=== PATIENT | male | born 1985 | race Caucasian/White ===

== ENCOUNTER 2022-05-02 09:36 | Emergency (ER) | payer MEDICAID, SELFPAY ==
[2022-05-02 09:39] VITALS: BP 105/55; PULSE 70; RESP 18; TEMP 36.1; O2SAT 99; BMI 35.4
--- NOTE | 2022-05-02 10:49 | ED.GENADULT ---
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 Blood is on 04/30. Patient states that nothing has changed since he was seen in the General surgery appointment and denies any fever, chills, nausea, vomiting, inability to pass stool or flatus and denies any urinary symptoms. Patient states that he was prescribed Naprosyn but ?that has not helped?. Related Data Allergies Allergy/AdvReac Type Severity Reaction Status Date / Time Penicillins [PENICILLINS] Allergy Unknown HIVES/SWELL Unverified 12/22/19 19:32 ING Review of Systems Review of Systems: Pertinent positives and negatives as stated in HPI. [facility] Past Medical History Source: nursing notes reviewed Social History Social History Alcohol intake: unknown Smoked in Last 30 Days: No Use of substances other than those prescribed or required for medical reasons: Unknown Advance Directives: No Advance Directives Information Provided: Yes Physical Exam ED Vital Signs: Vital Signs - 24 hr 05/02/22 09:39 Temperature 97.0 F Pulse Rate 70 Respiratory Rate 18 Blood Pressure 105/55 L Pulse Oximetry 99 Oxygen Delivery Method Room Air BMI result Body Mass Index 35.4 VITAL SIGNS: Reviewed. GENERAL: Well developed, well nourished, in no acute distress. HEAD: Normocephalic/atraumatic EYES: PERRLA, EOMI LUNGS: Normal breath sounds. No adventitious sounds or accessory muscle use. SpO2<99> CARDIOVASCULAR: Regular rate and rhythm without noted murmurs ABDOMEN: Soft, mild tenderness at the left periumbilical otherwise wounds appear to be healing well without overt erythema/induration, no rebound, non-distended with bowel sounds. MUSCULOSKELETAL: No tenderness, deformities, or effusions noted on gross inspection. EXTREMITIES: No cyanosis, clubbing or edema. SKIN: Inspection of the skin reveals no rashes NEUROLOGIC: Alert and oriented x 4. Strength and sensation to light touch were grossly intact x 4. Medical Decision Making Medical Decision Making MDM Narrative: 36-year-old male status post umbilical hernia repair without obstructive symptoms and afebrile and recently seen by surgery. I discussed the case with General surgery, Dr. Miller who agrees with no imaging, he saw the patient at bedside as well and patient will be discharged home in stable condition with additional recommendations for warm compresses for additional symptom relief. He was also recommend to follow-up in the office. Differential Diagnosis Differential Diagnoses: The differential diagnosis associated with the presentation includes Please see the discussion above Consult Healthcare Provider Management of the patient was discussed with: Proofsheet Corrector [id number]: I discussed the case with Dr. Miller. He agrees with no imaging. External Record Review External record reviewed: Office record, Outpatient record and Prior outpatient labs Discharge Plan Discharge Clinical Impression: Post-op pain Patient Disposition: Home, Self-Care Instructions: Pain Management (ED) Additional Instructions: 1. Tylenol 1000 mg, por v?a oral, cada 6 horas seg?n sea necesario para controlar el dolor. No exceda los 4000 mg dentro de las 24 horas. Le recomiendo que tome desmond medicamento junto con el Naprosyn que le whitt recetado carrion cirujano. 2. Tambi?n le recomiendo que use compresas tibias para un alivio adicional de los s?ntomas y, por supuesto, tenga mucho cuidado con la cantidad de peso o la actividad f?jeanette que realiza. 3. Le animo a que cris un seguimiento con el Dr. Choudhury?radha llamando a la oficina para programar al sudhir para al reevaluaci?n. Regrese a la akilah de emergencias si los s?ntomas empeoran. 1. Tylenol 1000 mg, orally, every 6 hours as needed for pain control. Do not exceed 4000 mg within 24 hours. I recommend that you take this medication in conjunction with the Naprosyn that has been prescribed by your surgeon. 2. I also recommend that you can use warm compresses for additional symptom relief and of course be very cautious with the amount of weight or physical activity that you are engaging in. 3. I encourage you to follow-up with Dr. Blood by calling the office in setting up an appointment for re-evaluation. Return to the ER for any worsening symptoms. Referrals: Osbaldo Blood MD [Physician] - (Postop pain) Print Language: Frisian
[2022-05-02] MEDS: Acetaminophen 325 MG TABLET 975 MG PO (11:18)
--- NOTE | 2022-05-02 14:34 | PM.CNGS ---
History of Present Illness Consult details Consult date: 05/02/22 Reason for consult: abdominal pain Narrative: 36-year-old male patient presenting to the emergency department with complaints of abdominal pain. He has a prior history of a laparoscopic hernia repair of the anterior abdominal wall apparently performed by Dr. Blood although no record noted in this patient's chart. Patient was provided with a prescription for Naprosyn however reports that this is not helping. Surgical consultation was requested for abdominal evaluation. Review of Systems Review of Systems: Yes all other systems are reviewed and are negative PMFSH Social History Social History Alcohol intake: unknown Smoked in Last 30 Days: No Use of substances other than those prescribed or required for medical reasons: Unknown Advance Directives: No Advance Directives Information Provided: Yes Meds Allergies Allergy/AdvReac Type Severity Reaction Status Date / Time Penicillins [PENICILLINS] Allergy Unknown HIVES/SWELL Unverified 12/22/19 19:32 ING Physical Exam Vital Signs: Vital Signs: Last Vital Signs Temp 97.0 F 05/02/22 09:39 Pulse 70 05/02/22 09:39 Resp 18 05/02/22 09:39 BP 105/55 L 05/02/22 09:39 Pulse Ox 99 05/02/22 09:39 O2 Del Method 05/02/22 09:39 BMI result Body Mass Index 35.4 Const: General: healthy appearing and comfortable Nutritional Appearance: well nourished Orientation/consciousness: patient oriented x3 Limitations: no limitations Resp: Effort & Inspection: normal respiratory effort and not tachypneic GI: Other: Laparoscopic incisions are clean, dry, and intact without redness or discharge. No palpable hernias identified. No erythema or ecchymosis appreciated. Neuro: General: patient oriented x3 Results Labs Labs: All other labs normal. Assessment and Plan (1) Post-op pain: Status: Acute Plan 36-year-old male patient with a hernia repair performed laparoscopically possibly an outside institution as no record is present in our chart. Examination reveals his abdomen is soft with well-healed laparoscopic incisions. There is no evidence of wound infection, hematoma or hernia recurrence. Patient should follow-up with his primary surgeon. Time Spent With Patient Time: Total time managing care of this patient today ____ minutes. Procedures Date of Service Date of Service: 05/02/22
== END 2022-05-02 11:22 | disposition home or self-care (01) ==
PROVIDERS: Emergency Provider Student in an Organized Health Care Education/Training Program
DX: G89.18 Other acute postprocedural pain (principal)
CPT/HCPCS: 99283; 99284

== ENCOUNTER 2023-07-15 12:01 | Emergency (ER) | payer MEDICAID, SELFPAY ==
--- NOTE | ~2023-07-15 | XR_ITS ---
EXAMINATION: XR CHEST CLINICAL INFORMATION: Shortness of breath COMPARISON: None available. TECHNIQUE: 2 views of the chest were obtained. FINDINGS: No focal consolidation, pulmonary edema, or pleural effusion. Normal cardiomediastinal silhouette. XR/XR chest 2V IMPRESSION: Unremarkable examination.
[2023-07-15 13:10] VITALS: BP 134/74; PULSE 92; RESP 18; TEMP 36.8; O2SAT 98; BMI 34.0
--- NOTE | 2023-07-15 13:10 | ED_ITS ---
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 Denies fevers. States he has an albuterol inhaler at home but ran out of the medication for his nebulizer machine. Did not take any other over the counter medications. Denies any chest pain or palpitations. complaint: cough, shortness of breath Onset (ago): hour(s) Treatments prior to arrival: other (albuterol) Related Data Previous Rx's ?Medication ?Instructions ?Recorded benzonatate 100 mg capsule 100 mg PO TID PRN cough #14 caps 07/15/23 oseltamivir 75 mg capsule 75 mg PO BID 5 days #10 caps 07/15/23 prednisone 20 mg tablet 40 mg (2 x 20 mg) PO DAILY #10 tabs 07/15/23 Allergies Allergy/AdvReac Type Severity Reaction Status Date / Time Penicillins [PENICILLINS] Allergy Unknown HIVES/SWELL Verified 07/15/23 13:11 ING Review of Systems Review of Systems: As per HPI. Yes all other systems are reviewed and are negative Constitutional: Constitutional: Reports as per HPI [facility] Social History Social History Alcohol intake: unknown Advance Directives: No Physical Exam ED Vital Signs: Vital Signs - 24 hr 07/15/23 13:10 07/15/23 14:50 07/15/23 15:00 Temperature 98.3 F Pulse Rate 92 80 91 Respiratory Rate 18 18 18 Blood Pressure 134/74 121/70 Pulse Oximetry 98 99 Oxygen Delivery Method Room Air Room Air 07/15/23 16:44 Temperature 99.5 F Pulse Rate 114 H Respiratory Rate 20 Blood Pressure 112/71 Pulse Oximetry 100 Oxygen Delivery Method Room Air BMI result Body Mass Index 34.0 Vital signs have been reviewed and appear to be correct. Blood pressure normal. Heart rate normal. Respiratory rate normal. Temperature normal. Oxygen saturation normal. Const General: cooperative, healthy appearing and no acute distress Orientation/consciousness: oriented to person, oriented to place, oriented to time and patient oriented x3 Limitations: no limitations HENMT Head: Yes normocephalic and Yes atraumatic Ears: external ears normal General nose exam: Normal external nose present Face and sinus: Yes face symmetric Mouth: oropharynx normal and moist mucous membranes Throat: Yes uvula midline Eyes Pupils: Equal, round and reactive pupils present Neck Neck: Yes normal visual inspection and Yes supple Resp Effort & Inspection: normal respiratory effort, able to speak in complete sentences, no respiratory distress, no retractions and no use of accessory muscles Auscultation: wheezes expiratory wheezes and throughout Cardio Rate: regular rate Rhythm: regular rhythm Heart sounds: S1 normal heart sound present and S2 normal heart sound present GI Palpation (GI): Soft to palpation and nontender Auscultation: normoactive bowel sounds General: Yes no CVA tenderness Back/Spine/Pelvis Back: no CVA tenderness Skin General skin exam: elasticity normal and turgor normal Neuro General: oriented to person, oriented to place, oriented to time, patient oriented x3, moves all extremities, no focal motor deficits and CN's II-XI intact bilaterally Cranial nerves: Yes Equal, round and reactive pupils present Cognition (Neuro): normal cognition Extrem General: Yes full ROM, Yes no pedal edema and Yes no calf tenderness Psych Mental Status: mental status grossly normal Affect: normal affect Thought process: Normal thought process present Course Course Course Narrative: RME:?37 yo male here for eval of shortness of breath, nasal congestion, myalgias, cough, subjective fevers since yesterday. his and step daughter are ill with the same symptoms at home. no otc pain meds. using ventolin inhaler at home without relief- last used this morning. afebrile. expiratory wheezes bilaterally. viral serology, CXR ordered Full HPI, ROS and PE to be performed by the primary ED provider. Medications Administered Discontinued Medications Generic Name Dose Route Start Last Admin Trade Name Freq PRN Reason Stop Dose Admin Albuterol Sulfate 4 puff 07/15/23 14:36 07/15/23 14:45 Albuterol Sulfate 90 Mcg 8 Gm Inhaler INHALE 07/15/23 14:37 4 puff ONCE ONE Administration Medical Decision Making Medical Decision Making MDM Narrative: Patient is a 37-year-old male with history of asthma presenting to the emergency department with complaint of nasal congestion, cough and shortness of breath since last night. On exam patient is awake, A+Ox3, VS WNL, afebrile, normal neurological exam without focal deficits, physical exam findings as above. Given reported symptoms and physical exam findings, initial differential includes asthma exacerbation, viral illness, COVID, flu, RSV, bronchitis, pneumonia. X-ray notable for no evidence of pneumonia. My interpretation is in agreement with the radiologist's interpretation. Viral swab positive for influenza A. Patient updated on results and all questions answered via supervisor labor gang. Patient is agreeable to treatment with Tamiflu, will also prescribe course of prednisone and benzonatate. Patient reports he has adequate amount of albuterol inhaler at home. Return precautions discussed at bedside. Instructed patient to follow up with his primary care provider. Isolation precautions discussed with patient. Patient verbalized understanding of and agreement with plan via principal security architect. Differential Diagnosis Differential Diagnoses: The differential diagnosis associated with the presentation includes As per MDM. Admission/Observation Consideration of admission/observation: Escalation of care including admission/observation considered Patient would have been admitted to the hospital had their work up had any findings where hospital admission was appropriate and their clinical presentation warranted hospital admission. Lab Data [facility] Lab Attestation statement: I reviewed the patient's lab results. As per [facility]. Labs: Lab Results 07/15/23 Range/Units 13:33 Influenza Type A (PCR) POSITIVE A (Negative) Influenza Type B (PCR) NEGATIVE (Negative) RSV RNA Qual (PCR) NEGATIVE (Negative) SARS-CoV-2 RNA (RT-PCR) NEGATIVE (Negative) Independent Interpretation I performed an independent interpretation of an: Plain X-Ray Interpretation: No evidence of pneumonia on chest xray Radiology Impression Discussion of test interpretation with radiology: I have reviewed the radiologist's reading. Radiologist Impression: XR/XR chest 2V IMPRESSION: Unremarkable examination. External Record Review External record reviewed: Inpatient record, Office record and Outpatient record Prescription Management I considered prescription management with: Antiviral and Other Discharge Plan Discharge Clinical Impression: Influenza, Asthma exacerbation Patient Disposition: Home, Self-Care Instructions: Asthma (DC), Influenza (DC) Additional Instructions: You were evaluated in the emergency department today for cough and shortness of breath. Your flu test was positive. You should isolate at home for another 4 days and continue to wear mask or symptomatic after that. You are being treated with Tamiflu, please take this medication as prescribed. You are being prescribed a short course of steroids to decrease inflammation. You are also being prescribed cough medicine which you can take every 8 hours as needed, please keep this medication out of the reach of children. Your symptoms should resolve over time with rest and fluids. You can take 650 mg Tylenol or 600 mg ibuprofen every 6 hours as needed for fever or pain. Please follow-up with your primary care provider for any ongoing symptoms. Return to the emergency department if you develop worsening pain, fever not controlled with Tylenol and ibuprofen, chest pain, dizziness or lightheadedness, or any other concerning symptoms. Prescriptions: New oseltamivir 75 mg capsule 75 mg PO BID 5 Days Qty: 10 0RF prednisone 20 mg tablet 40 mg PO DAILY Qty: 10 0RF benzonatate 100 mg capsule 100 mg PO TID PRN (Reason: cough) Qty: 14 0RF Stand Alone Forms: Work/School Release Print Language: Albanian
[2023-07-15 14:24] LABS: Influenza A PCR POSITIVE (Negative); Influenza B PCR NEGATIVE (Negative); Resp Syncy Virus RNA Qual PCR NEGATIVE (Negative); SARS COV2 PCR INHOUSE NEGATIVE (Negative)
[2023-07-15] MEDS: Albuterol Sulfate 90 MCG 8 GM INHALER 4 PUFF INHALE (14:45)
[2023-07-15 14:50] VITALS: PULSE 80; RESP 18; O2SAT 96
[2023-07-15 15:00] VITALS: BP 121/70; PULSE 91; RESP 18; O2SAT 99
[2023-07-15 16:44] VITALS: BP 112/71; PULSE 114; RESP 20; TEMP 37.5; O2SAT 100
[2023-07-15 17:37] VITALS: BP 112/71; PULSE 114; RESP 20; TEMP 37.5; O2SAT 100
== END 2023-07-15 17:40 | disposition home or self-care (01) ==
PROVIDERS: Physician Assistant Medical; Emergency Provider Student in an Organized Health Care Education/Training Program
DX: J10.1 Influenza due to other identified influenza virus with other respiratory manifestations (principal); J45.901 Unspecified asthma with (acute) exacerbation; R50.9 Fever, unspecified; R05.9 Cough, unspecified; R09.81 Nasal congestion; Z11.52 Encounter for screening for COVID-19; Z20.822 Contact with and (suspected) exposure to COVID-19
CPT/HCPCS: 0241U; 71046; 94640; 94664; 99284

== ENCOUNTER 2024-04-20 16:18 | Emergency (ER) | payer SELFPAY ==
--- NOTE | ~2024-04-20 | XR_ITS ---
CLINICAL HISTORY: cough 1 view chest x-ray Comparison: None Findings: New airspace disease measures up to 5 cm laterally in the right upper lobe. Differential considerations include pneumonitis/pneumonia at this time. Imaged mediastinum appears unchanged. No pneumothorax or pleural effusion in the [id number]. No interim osseous change by one view chest x-ray. IMPRESSION: Airspace disease in the right upper lobe concerning for pneumonia. Recommend attention on follow-up to ensure resolution. This document has been electronically signed by: Juno Benjamin MD on 04/20/2024 20:37:10
[2024-04-20 16:20] VITALS: BP 122/72; PULSE 100; RESP 24; TEMP 36.4; O2SAT 100; BMI 34.8
--- NOTE | 2024-04-20 16:22 | ED.GENADULT ---
HPI - General Adult General Chief complaint: Upper Respiratory Symptoms Stated complaint: SOB, cough Time Seen by Provider: 04/20/24 20:11 Source: patient Limitations: language barrier History of Present Illness ED Provider: Christine Machado PA-C HPI narrative: 38-year-old male with a history of asthma presents with cough and wheezing x1 day. Patient states he has been using his home inhaler without relief of symptoms. The cough is dry and repetitive. Denies fever. Related Data Previous Rx's ?Medication ?Instructions ?Recorded benzonatate 100 mg capsule 100 mg PO TID PRN cough #14 caps 07/15/23 oseltamivir 75 mg capsule 75 mg PO BID 5 days #10 caps 07/15/23 prednisone 20 mg tablet 40 mg (2 x 20 mg) PO DAILY #10 tabs 07/15/23 albuterol sulfate 90 mcg/actuation 2 puff inhalation Q4-6H PRN 04/20/24 aerosol inhaler shortness of breath or wheezing #8.5 grams azithromycin 250 mg tablet 250 mg PO DAILY 4 days #4 tabs 04/20/24 cefuroxime axetil 500 mg tablet 500 mg PO BID #19 tabs 04/20/24 prednisone 20 mg tablet 40 mg (2 x 20 mg) PO DAILY #8 tabs 04/20/24 Allergies Allergy/AdvReac Type Severity Reaction Status Date / Time Penicillins [PENICILLINS] Allergy Unknown HIVES/SWELL Verified 04/20/24 16:23 ING Review of Systems Review of Systems: Yes all other systems are reviewed and are negative Constitutional: Constitutional: Denies fatigue and Denies fever(s) Cardiovascular: Cardiovascular: Denies chest pain and Reports dyspnea Respiratory: Respiratory: Reports cough, Reports dyspnea and Reports wheezing Gastrointestinal: Gastrointestinal: Denies abdominal pain, Denies diarrhea, Denies nausea and Denies vomiting Endocrine: Endocrine: Denies fatigue Allergic/Immunologic: Allergic/Immunologic: Reports wheezing PMFSH Past Medical History Attestation statement: The following information was validated with the patient. Social History Social History Alcohol intake: unknown Smoked in Last 30 Days: No Advance Directives: No Advance Directives Information Provided: Yes Do you have a plan to hurt others: No Plan Physical Exam ED Vital Signs: Vital Signs - 24 hr 04/20/24 16:20 04/20/24 21:08 04/20/24 21:08 Temperature 97.5 F 99.1 F Pulse Rate 100 115 H Respiratory Rate 24 H 22 H Blood Pressure 122/72 105/56 L Pulse Oximetry 100 97 Oxygen Delivery Method Room Air Room Air Room Air 04/20/24 22:11 Temperature 98 F Pulse Rate 103 H Respiratory Rate 18 Blood Pressure 115/64 Pulse Oximetry 98 Oxygen Delivery Method Room Air BMI result Body Mass Index 34.8 Const Other: Alert well-appearing Orientation/consciousness: patient oriented x3 Resp Other: Active bronchospasm type cough, faint scattered expiratory wheezes posterior bazzi Cardio Other: Normal peripheral perfusion Skin Other: Warm dry no rash Neuro General: patient oriented x3, no focal motor deficits and CN's II-XI intact bilaterally Psych Other: Calm cooperative Course Course Course Narrative: RME, this is a rapid medical exam performed by Brett Durham please refer to primary provider for complete H&P- 30 presents for evaluation of cough and congestion that started today. Plan for viral swabs. Medications Administered Discontinued Medications Generic Name Dose Route Start Last Admin Trade Name Krishq PRN Reason Stop Dose Admin Albuterol Sulfate 2.5 mg/ 0 mg 04/20/24 20:23 04/20/24 20:27 Albuterol/Ipratropium 3 ml INHALE 04/20/24 20:24 1 dose ONCE ONE Administration Guaifenesin/Codeine Phosphate 10 ml 04/20/24 21:42 04/20/24 22:14 Guaifen/Codeine Sf 200/20/10ml 10 Ml Liquid PO 04/20/24 21:43 10 ml ONCE ONE Administration Prednisone 40 mg 04/20/24 20:12 04/20/24 20:31 Prednisone 20 Mg Tablet PO 04/20/24 20:13 40 mg ONCE ONE Administration Medical Decision Making Medical Decision Making [facility] Narrative: 38-year-old male with a history of asthma presents with cough and wheezing x1 day. Patient states he has been using his home inhaler without relief of symptoms. The cough is dry and repetitive. Denies fever. Problem asthma History per patient I have considered the following differential diagnoses: Asthma exacerbation, bronchitis, pneumonia, viral syndrome Plan: Viral panel obtained from triage I am adding a chest x-ray. Sounds as if he is having a very mild asthma exacerbation. He is not a tobacco smoker I am not inclined to place on a Z-Anton. We will give an updraft And prednisone. I have independently reviewed the following tests: Labs: Viral panel negative Chest x-ray:MPRESSION: Airspace disease in the right upper lobe concerning for pneumonia. Recommend attention on follow-up to ensure resolution. This document has been electronically signed by: Juno Benjamin MD on 04/20/2024 20:37:10 Lab Data Labs: Lab Results 04/20/24 Range/Units 18:12 Influenza Type A (PCR) NEGATIVE (Negative) Influenza Type B (PCR) NEGATIVE (Negative) RSV RNA Qual (PCR) NEGATIVE (Negative) SARS-CoV-2 RNA (RT-PCR) NEGATIVE (Negative) Discharge Plan Discharge Clinical Impression: Asthma exacerbation, Pneumonia Patient Disposition: Home, Self-Care Instructions: Asthma (ED), Community Acquired Pneumonia (ED) Additional Instructions: You are being treated for an asthma exacerbation, the viral panel was negative. See home care instructions. Take the steroid as directed use your inhalers as needed. And a chest x-ray you were also found to have pneumonia, see home care instructions. You are being placed on 2 antibiotics, take them as directed; azithromycin and cefuroxime. You should be using [id number] Mucinex to help with your cough. If you develop a fever, use [id number]-[id number] Tylenol 1000 mg taken every 8 hours. Follow up with your primary care provider as needed. Prescriptions: New albuterol sulfate 90 mcg/actuation HFA aerosol inhaler 2 puff inhalation Q4-6H PRN (Reason: shortness of breath or wheezing) Qty: 8.5 0RF prednisone 20 mg tablet 40 mg PO DAILY Qty: 8 0RF cefuroxime axetil 500 mg tablet 500 mg PO BID Qty: 19 0RF azithromycin 250 mg tablet 250 mg PO DAILY 4 Days Qty: 4 0RF Rx Instructions: start on day 2 of therapy No Action oseltamivir 75 mg capsule 75 mg PO BID 5 Days Qty: 10 0RF prednisone 20 mg tablet 40 mg PO DAILY Qty: 10 0RF benzonatate 100 mg capsule 100 mg PO TID PRN (Reason: cough) Qty: 14 0RF Stand Alone Forms: Work/School Release Print Language: Burkinan
[2024-04-20 18:48] LABS: Influenza A PCR NEGATIVE (Negative); Influenza B PCR NEGATIVE (Negative); Resp Syncy Virus RNA Qual PCR NEGATIVE (Negative); SARS COV2 PCR INHOUSE NEGATIVE (Negative)
[2024-04-20] MEDS: Albuterol Sulfate 2.5 MG, Albuterol/Iprat 2.5/0.5MG 3 ML 3 ML INHALE (20:27)
[2024-04-20] MEDS: predniSONE 20 MG TABLET 40 MG PO (20:31)
--- NOTE | 2024-04-20 20:33 | PC.NURSE ---
Medicated per mar, respiratory provider breathing treatment, changed into hospital attire and on bed side monitor.
[2024-04-20 21:08] VITALS: BP 105/56; PULSE 115; RESP 22; TEMP 37.3; O2SAT 97
[2024-04-20 22:11] VITALS: BP 115/64; PULSE 103; RESP 18; TEMP 36.6; O2SAT 98
[2024-04-20] MEDS: guaiFEN/Codeine SF 200/20/10ML 10 ML LIQUID PO (22:14)
[2024-04-20 23:05] VITALS: BP 0/0; PULSE 0; RESP 0; TEMP -17.7; TEMP 0; O2SAT 0
[2024-04-20] MEDS: Azithromycin 500 MG TABLET PO (23:09)
[2024-04-20] MEDS: cefuroxime axetiL 500 MG TABLET PO (23:09)
== END 2024-04-20 23:05 | disposition home or self-care (01) ==
PROVIDERS: Physician Assistant; Emergency Provider Emergency Medicine
DX: J18.9 Pneumonia, unspecified organism (principal); J45.901 Unspecified asthma with (acute) exacerbation; R06.02 Shortness of breath; R05.9 Cough, unspecified; Z03.818 Encounter for observation for suspected exposure to other biological agents ruled out
CPT/HCPCS: 0241U; 71045; 99284; 99285

== ENCOUNTER → 2024-04-20 20:12 | Outpatient (BNV) | payer SELFPAY | PROVIDERS: Emergency Provider Emergency Medicine; Visit Provider Radiology Neuroradiology | DX: R06.02 Shortness of breath (principal); R05.9 Cough, unspecified | CPT/HCPCS: 71045 ==